=== PATIENT | male | born 1990 | race African-American/Black ===

== ENCOUNTER 2020-05-06 20:53 | Emergency (ER) | payer MEDICAID ==
[~2020-05-06] VITALS: Ht 175.3 cm; Wt 65.9 kg
[~2020-05-06 20:53] MED LIST: NOCURR
[2020-05-06] MEDS ORDERED: MIRT-89 PO (21:00)
[2020-05-06] MEDS ORDERED: RISP1TAB48 PO (21:00)
[2020-05-06] MEDS ORDERED: DiphenhydrAMINE HCL 50 MG/ML VIAL IM ONE (21:30)
[2020-05-06] MEDS ORDERED: DEXAMETHASONE SOD PHOS 4 MG/ML 5 ML VIAL IM ONE (21:30)
[2020-05-06 23:01] LABS: COVID AG,FIA SOURCE NASOPHARYNGEAL
[2020-05-07 00:04] VITALS: BP 135/76
== END 2020-05-07 00:28 | disposition home or self-care (01) ==
LOC: EMS 20:53 → EDBD 20:53 → EMS 05-07 00:28
DX: T78.40XA Allergy, unspecified, initial encounter (principal); F41.9 Anxiety disorder, unspecified; R06.02 Shortness of breath; F17.210 Nicotine dependence, cigarettes, uncomplicated; F14.90 Cocaine use, unspecified, uncomplicated; F12.90 Cannabis use, unspecified, uncomplicated; F32.9 Major depressive disorder, single episode, unspecified; F20.9 Schizophrenia, unspecified; Z20.828 Contact with and (suspected) exposure to other viral communicable diseases; Z88.1 Allergy status to other antibiotic agents; Z91.018 Allergy to other foods; X58.XXXA Exposure to other specified factors, initial encounter
CPT/HCPCS: 87426; 87430; 96372; 99284; J1100; J1200